=== PATIENT | female | born 1980 | race Caucasian/White ===

== ENCOUNTER 2017-03-18 11:37 | Emergency (ER) | payer BC, OTHER ==
[~2017-03-18] VITALS: Ht 166.4 cm; Wt 59.1 kg
[~2017-03-18 11:37] MED LIST: PLEXUS PO
[2017-03-18 11:40] VITALS: TEMP 36.7; Ht 166.4 cm; Wt 59.1 kg
--- NOTE | 2017-03-18 12:24 | EMERGENCY ROOM VISIT NOTE ---
History Report prepared by Lindsayibparesh: Chaparrita Luna Under the Supervision of: Dr. Saqib Uriarte M.D. First contact with patient: 12:02 Chief Complaint: RECTAL PAIN Stated Complaint: THROMBOSED EXTERNAL HEMORRHOID Nursing Triage Summary: rectal pain. has external thrombosed hemorrhoid. Patient reports extremely uncomfortable "I can't sit, I can't stand, having hard time sleeping" History of Present Illness The patient is a 36 year old female who presents to the Emergency Room with complaints of worsening rectal pain for the past 1 week. She rates her discomfort as an 8/10. Sitting and standing worsen her pain. The patient reports she went to a local urgent care clinic recently and was told she has an external thrombosed hemorrhoid that either needs to be drained or possible surgery. She denies any recent fevers, chills, cough or cold symptoms, back pain , nausea, vomiting or diarrhea. She states she has no chronic medical problems. Source of History: patient Onset: 1 week REFUELER Position: other (rectum) Symptom Intensity: 8/10 Timing: worsening Modifying Factors (Worsening): other (sitting and standing) Associated Symptoms: No fevers, No chills, No cough (cough or cold symptoms) , No nausea, No vomiting, No back pain, No diarrhea Review of Systems See HPI for pertinent positives and negatives. A total of ten systems were reviewed and were otherwise negative. Family History FHx: diabetes mellitus Social History Smoking Status: Never Smoker Alcohol Use: none Drug Use: none Marital Status: Housing Status: lives with family Occupation Status: employed Current/Historical Medications Scheduled PRN [reactiv], 1 TOP TID PRN for Pain Allergies Coded Allergies: Codeine (Verified Adverse Reaction, Mild, VOMITING , 03/18/17) Physical Exam Vital Signs Date Time Temp Pulse Resp B/P (MAP) Pulse Ox O2 Delivery O2 Flow Rate FiO2 03/18/17 14:00 73 18 120/77 98 Room Air 03/18/17 11:40 36.7 100 18 129/80 99 Room Air Physical Exam GENERAL: Awake, alert, well-appearing, in no distress HENT: Normocephalic, atraumatic. Oropharynx unremarkable. EYES: Normal conjunctiva. Sclera non-icteric. NECK: Supple. No nuchal rigidity. FROM. No JVD. RESPIRATORY: Clear to auscultation. CARDIAC: Regular rate, normal rhythm. Extremities warm and well perfused. Pulses equal. ABDOMEN: Soft, non-distended. No tenderness to palpation. No rebound or guarding. No masses. RECTAL: Thrombosed hemorrhoid at the 3 o'clock position with fluctuance and tenderness at the base. No tenderness elsewhere in the rectum. No signs of fluctuance or induration within the rectum itself. MUSCULOSKELETAL: Chest examination reveals no tenderness. The back is symmetrical on inspection without obvious abnormality. There is no CVA tenderness to palpation. No joint edema. LOWER EXTREMITIES: No edema/erythema. Pulses intact. NEURO: Normal sensorium. No sensory or motor deficits noted. SKIN: No rash or jaundice noted. Medical Decision & Procedures Medications Administered Medications (Trade) Dose Ordered Sig/Pattie Route Start Time Stop Time Status Last Admin Dose Admin Tetracaine/ Epinephrine/ Lidocaine (L.e.t. Gel 4%/ 1:100/0.5%) 1 ea STK-MED ONCE .ROUTE 03/18/17 12:28 03/18/17 12:29 DC 03/18/17 12:40 1 EA Procedure Indication: [Thrombosed external hemhorroid] Location: [anus @ 3 o'clock position] Written consent was obtained after the risks and benefits were explained, including but not limited to bleeding, scarring, infection, pain, and bone/joint /nerve damage. At this time, the risks of the procedure are less than the risks of NOT performing the procedure. A time out was taken and the correct patient and site identified. Patient was place in right lateral decubitis position. The skin was prepped with betadine and a sterile field set. The patient was anesthetized with 1% lido/epi at the apex of the hemorrhoid. The [1.5cm] external hemorrhoid was identified at [3] o'clock in position. It was grasped with forcep and an 11-blade scalpel was used to elliptically to incise the large hemorrhoid, staying superficial to the sphincter muscle. Thrombosed was then evacuated with forcep and irrigated with saline. At the conclusion, there was no evidence of bleeding. No complications. ED Course 1218: The patient was evaluated in room C3. A complete history and physical exam was performed. 1227: Lidocaine/Epinephrine 20 ml INFIL. 1228: Tetracaine/Epinephrine/Lidocaine Gel INFIL. 1405: I reevaluated the patient. She is feeling better and resting comfortably. I discussed her results and discharge instructions and she verbalized complete understanding and agreement. Medical Decision I reviewed the patient's past medical history, medications, and the nursing notes as described above. The differential diagnoses considered include thrombosed hemorrhoid, perianal abscess and perianal fistula. The patient is a 36 y/o woman who presents to the ED with worsening pain from thrombosed external hemorrhoid per HPI. On arrival the patient is in NAD. AFVSS. On exam the patient has thrombosed external hemorrhoid at 3 oclock position. Otherwise no signs of prudencio-rectal fistula or abscess. Patient reports using warm water baths and Prep H without relief. I d/w patient that were additional option to optimize medical management until she is able to see surgery clinic. However, patient requesting incision and evacuation. I explained that this procedure is mostly likely to be temporary as the thrombosis can re-accumulate and definitive treatment who be hemorrhoid exicision by surgery. Patient preferred incision and evacuation for relief. Consent was completed and procedure performed successfully per procedure note. Patient given rx for Rectiv (topical NTG) to relief pain associated with spasm if thromboses reaccumulates. D/w CM who will help to facilitate surgery f/u although patient prefers to call herself. Patient agreeable with plan and d/c'd per instructions. Medication Reconcilliation Current Medication List: was personally reviewed by me Blood Pressure Screening Patient's blood pressure: Normal blood pressure Blood pressure disposition: Did not require urgent referral Impression Primary Impression: Thrombosed external hemorrhoid Scribe Attestation The scribe's documentation has been prepared under my direction and personally reviewed by me in its entirety. I confirm that the note above accurately reflects all work, treatment, procedures, and medical decision making performed by me. Departure Information Dispostion Home / Self-Care Prescriptions [reactiv] No Conflict Check 1 TOP TID Y for Pain for 7 Days, #1 TUBE as needed for pain from hemhorroid. Prov: Saqib Uriarte M.D. 03/18/17 Referrals No Doctor, Assigned (PCP) Derrick Ledezma D.O. Patient Instructions Hemorrhoids Thrombosed, My [facility], Sitz Bath Additional Instructions Please follow up with surgery clinic next week. You will be contacted by our case manager specialist will help arrange an appointment. Your external hemorrhoid was incised and the clot was evacuated. However this may reaccumulate and may require an excision in the surgery clinic. Continue sitz bath's daily. If your hemorrhoid reaccumulates you may attempt nitroglycerin paste for pain relief as needed as directed. Otherwise, your exam did not show signs of an emergent condition. Return to the emergency department for worsening symptoms as described in the accompanying instructions.
[2017-03-18] MEDS ORDERED: LIDO/EPINEPHRINE/SOD BICARB 20 ML VIAL INFIL ONE (12:27)
[2017-03-18] MEDS ORDERED: LIDOCAINE/EPINEPH/TETRACAINE 1 EA SYR ONE (12:28)
[2017-03-18 14:00] VITALS: BP 120/77; PULSE 73; O2SAT 98
[2017-03-18] MEDS ORDERED: [UNRECOGNIZED DRUG - REMARK] TOP (14:03)
== END 2017-03-18 14:17 | disposition home or self-care (01) ==
LOC: C.EDB 11:41 → C.EDC 14:17
DX: K64.5 Perianal venous thrombosis (principal); Z83.3 Family history of diabetes mellitus